=== PATIENT | male | born 1965 | race Caucasian/White ===

== ENCOUNTER 2019-02-20 15:11 | Emergency (ER) | payer MEDICAID ==
[~2019-02-20] VITALS: Ht 172.7 cm; Wt 65.8 kg
--- NOTE | 2019-02-20 15:20 | NUR ---
patient presented to the ER, TIFFANIE, from the street. passed out, noted with 1 gallon of vodka on scene. On room air, breathing evenly adn unlabored. Kept comfortable, will continue to monitor accordingly.
--- NOTE | 2019-02-20 15:22 | NUR ---
ORDERED LUNCH TRAY
[2019-02-20] MEDS ORDERED: MAG HYDROX/AL HYDROX/SIMETH 30 ML UDC ONE (15:27)
[2019-02-20] MEDS ORDERED: MAG HYDROX/AL HYDROX/SIMETH 30 ML UDC PO ONE (15:30)
[2019-02-20 15:42] LABS: BASOPHILS # (AUTO) 0.1 /CMM (0.0-0.2); BASOPHILS % (AUTO) 1.4 % (0.0-2.0); EOSINOPHILS % (AUTO) 1.2 % (0.0-6.0); HEMATOCRIT 41 % (39-51); HEMOGLOBIN 14.1 g/dL (13.5-17.5); LYMPHOCYTES % (AUTO) 25.9 % (20.0-44.0); MEAN CORPUSCULAR HGB CONC 34 g/dl (31.0-36.0); MEAN CORPUSCULAR VOLUME 98 fL (80-96); MONOCYTES # (AUTO) 0.6 /CMM (0.1-1.30); MONOCYTES % (AUTO) 14.3 % (2.0-12.0); NEUTROPHILS # (AUTO) 2.3 /CMM (1.8-8.9); NEUTROPHILS % (AUTO) 57.2 % (43.0-81.0); PLATELET COUNT (AUTO) 107 /CMM (150-450); RED BLOOD CELL COUNT(AUTO) 4.16 MIL/uL (4.5-6.0)
[2019-02-20 15:50] LABS: CALCIUM, SERUM 8.9 mg/dL (8.5-10.1); CREATININE 0.9 mg/dL (0.6-1.3); POTASSIUM 3.6 mmol/L (3.5-5.1)
[2019-02-20 16:04] LABS: ALBUMIN 3.9 g/dL (3.4-5.0); BILIRUBIN,DIRECT 0.4 mg/dL (0.0-0.2); TOTAL PROTEIN, SERUM 7.2 g/dL (6.4-8.2)
[2019-02-20 17:30] VITALS: BP 133/82
--- NOTE | 2019-02-20 17:31 | NUR ---
Patient discharged to home in stable condition. Written and verbal after care instructions given. Patient verbalizes understanding of instruction.IV removed. Catheter intact and site benign. Pressure and 4x4 applied to site. No bleeding noted.
== END 2019-02-20 17:30 | disposition home or self-care (01) ==
LOC: ER 15:19
DX: F10.129 Alcohol abuse with intoxication, unspecified (principal); K29.20 Alcoholic gastritis without bleeding; Y90.9 Presence of alcohol in blood, level not specified
CPT/HCPCS: 36415; 80048-TC; 80076-TC; 83690-TC; 85025-TC

== ENCOUNTER 2019-05-08 22:49 | Inpatient (IN) | payer MEDICAID ==
[~2019-05-08] VITALS: Ht 180.3 cm; Wt 70.3 kg
--- NOTE | 2019-05-08 23:00 | NUR ---
PT BIB RA FROM THE STREET WITH A C/O ETOH. PT WAS MOANING AND HOLDING HIS ABD. PT STATED THAT HE HAD ABD PAIN AND A HX OF PANCREATITIS. PT STATED THAT HE "DRANK A LOT" TODAY. PT WAS FOUND LYING ON THE GROUND OUTSIDE A RESTAURANT AND 911 WAS CALLED. PT STATED THAT HE IS NOT HOMELESS AND HAS AN APARTMENT THAT HE OWNS AND LIVES IN. PT WAS PLACED ON THE MONITOR AND CONTINUOUS PULSE OX. VSS.
--- NOTE | 2019-05-08 23:15 | NUR ---
DR OLMEDO IS AT THE BEDSIDE SPEAKING TO THE PT. PT DENIES ABD PAIN AT THIS TIME, BUT STATES THAT HE HAS HX OF PANCREATITIS. PT IS INTERMITTENTLY FALLING ASLEEP. PT REC'D WARM BLANKETS.
[2019-05-08 23:29] LABS: BASOPHILS # (AUTO) 0.1 /CMM (0.0-0.2); BASOPHILS % (AUTO) 0.7 % (0.0-2.0); EOSINOPHILS % (AUTO) 0.1 % (0.0-6.0); HEMATOCRIT 49 % (39-51); HEMOGLOBIN 16.4 g/dL (13.5-17.5); LYMPHOCYTES # (AUTO) 1.8 /CMM (0.8-4.8); LYMPHOCYTES % (AUTO) 15.3 % (20.0-44.0); MEAN CORPUSCULAR HGB CONC 34 g/dl (31.0-36.0); MEAN CORPUSCULAR VOLUME 96 fL (80-96); MONOCYTES # (AUTO) 0.6 /CMM (0.1-1.30); NEUTROPHILS # (AUTO) 9.1 /CMM (1.8-8.9); NEUTROPHILS % (AUTO) 78.9 % (43.0-81.0); PLATELET COUNT (AUTO) 245 /CMM (150-450); RED BLOOD CELL COUNT(AUTO) 5.07 MIL/uL (4.5-6.0); WHITE BLOOD COUNT (AUTO) 11.5 K/uL (4.3-11.0)
[2019-05-08] MEDS ORDERED: IV NS 0.9% 1,000 ML BAG IV ONE (23:30)
[2019-05-08 23:36] LABS: CALCIUM, SERUM 8.6 mg/dL (8.5-10.1); POTASSIUM 3.7 mmol/L (3.5-5.1)
[2019-05-08 23:41] LABS: BILIRUBIN,DIRECT 0.3 mg/dL (0.0-0.2); BILIRUBIN,TOTAL 1.2 mg/dL (0.2-1.0); TOTAL PROTEIN, SERUM 7.9 g/dL (6.4-8.2)
--- NOTE | 2019-05-09 | NUR ---
PT'S FLUID IS NOT RUNNING. PT'S ARM IS BENT. ASKED PT TO KEEP HIS ARM STRAIGHT AND PT STATED HE WOULD.
[2019-05-09] MEDS ORDERED: IV NS 0.9% 1,000 ML BAG IV ONE ×2 (00:30→07:00)
--- NOTE | 2019-05-09 00:50 | NUR ---
PLACED BLANKETS UNDER PT'S ARM AND ALLOW THE IVF TO RUN BETTER.
--- NOTE | 2019-05-09 02:05 | NUR ---
PT IS SLEEPING SOUNDLY. PT IS ON THE MONITOR AND CONTINUOUS PULSE OX. PT HAS REQUESTED TO STAY UNTIL TOMORROW. PT IS STILL DENYING HOMELESSNESS.
--- NOTE | 2019-05-09 02:57 | NUR ---
REPORT GIVEN TO ANATOLY MIN AND MECHELLE HUSTON FOR GRACIELA.
[2019-05-09 03:23] LABS: CALCIUM, SERUM 7.2 mg/dL (8.5-10.1); CREATININE 0.9 mg/dL (0.6-1.3); POTASSIUM 4.2 mmol/L (3.5-5.1)
[2019-05-09] MEDS ORDERED: LORAZEPAM INJ 2 MG/ML VIAL ONE ×3 (03:35→07:20)
[2019-05-09] MEDS ORDERED: LORAZEPAM INJ 2 MG/ML VIAL IV ONE ×3 (04:00→07:00)
[2019-05-09] MEDS ORDERED: FOLIC ACID 1 MG TABLET PO ONE (07:00)
[2019-05-09] MEDS ORDERED: Thiamine 100 MG in IV D5W 50 ML IV SCH (07:00)
--- NOTE | 2019-05-09 07:15 | NUR ---
ASSUME PT CARE. RESTING IN BED. SLEEPING, AROUSABLE. TOGOLESE SPEAKING. ON MONITOR. TACHYCARDIC. WILL CONT. TO MONITOR.
[2019-05-09] MEDS ORDERED: FOLIC ACID 1 MG TABLET ONE (07:19)
[2019-05-09] MEDS ORDERED: Thiamine 100 MG/ML VIAL ONE (07:19)
[2019-05-09] MEDS ORDERED: Folic acid 1 MG/0.2 ML VIAL ONE (07:22)
[2019-05-09] MEDS ORDERED: Folic acid 1 MG/0.2 ML VIAL IV ONE (07:30)
--- NOTE | 2019-05-09 08:03 | NUR ---
Rm 101
--- NOTE | 2019-05-09 08:42 | NUR ---
REPORT GIVEN TO KELIN MIN. PT AWAITING TRANSFER TO FLOOR.
--- NOTE | 2019-05-09 08:50 | NUR ---
TELE1/AUDIO VIDEO TECHNICIAN TO TELE1 - ROOM 101 PT ARRIVED VIA GURNEY ACCOMPANIED BY ER NURSE AND INTERNAL MEDICINE SPECIALIST, PT VERY ALERT, BUT VERY DROWSY, UNABLE TO SUSTAIN BEING AWAKE FULLY TO ANSWER QUESTIONS BUT FOLLOWS COMMAND. PT ADMITTED FOR TOXIC ENCEPHALOPATHY RELATED TO ALCOHOL INTOXICATION, UNDER THE CARE OF Ele JASSO. TELE BOX PLACED, NOTED WITH ELEVATED HEART RATE, 123, SINUS TACHY. IV SITE FLUSHED, PATENT WITH NO S/S OF INFECTION. SKIN INTACT. ADMISSION PROTOCOLS BEING PROCESSED. AWAITING FOR ADMISSION ORDERS. CL WITHIN REACHED AND SAFETY MAINTAINED. ON GOING MONITORING.
[2019-05-09 09:00] VITALS: BP 112/72
[2019-05-09] MEDS ORDERED: ZOLPIDEM TARTRATE 5 MG TABLET PO PRN (10:00)
[2019-05-09] MEDS ORDERED: Z GUARD REMEDY 2 OZ OINT TP PRN (10:00)
[2019-05-09] MEDS ORDERED: ACETAMINOPHEN 325 MG TABLET PO PRN (10:00)
[2019-05-09] MEDS ORDERED: MAGNESIUM HYDROXIDE 30 ML UDC PO PRN (10:00)
[2019-05-09] MEDS ORDERED: MAG HYDROX/AL HYDROX/SIMETH 30 ML UDC PO PRN (10:00)
[2019-05-09 10:34] LABS: BILIRUBIN,TOTAL 1.3 mg/dL (0.2-1.0); CALCIUM, SERUM 7.1 mg/dL (8.5-10.1); CREATININE 0.8 mg/dL (0.6-1.3); MAGNESIUM 1.3 mg/dL (1.8-2.4); PHOSPHORUS 2.9 mg/dL (2.5-4.9); POTASSIUM 3.7 mmol/L (3.5-5.1); TOTAL PROTEIN, SERUM 6.3 g/dL (6.4-8.2)
[2019-05-09] MEDS: Folic acid 1 MG in IV D5W 50 ML IV SCH (10:48)
[2019-05-09] MEDS: IV 1/2NS 1000 ML 1,000 ML IV PRN (10:48)
[2019-05-09] MEDS ORDERED: IV NS 0.9% 250 ML IV PRN (11:00)
[2019-05-09 11:26] LABS: BASOPHILS # (AUTO) 0.1 /CMM (0.0-0.2); BASOPHILS % (AUTO) 1.2 % (0.0-2.0); EOSINOPHILS % (AUTO) 0.7 % (0.0-6.0); HEMATOCRIT 43 % (39-51); HEMOGLOBIN 14.2 g/dL (13.5-17.5); LYMPHOCYTES # (AUTO) 2.1 /CMM (0.8-4.8); LYMPHOCYTES % (AUTO) 18.4 % (20.0-44.0); MEAN CORPUSCULAR HGB CONC 33 g/dl (31.0-36.0); MEAN CORPUSCULAR VOLUME 95 fL (80-96); MONOCYTES # (AUTO) 0.8 /CMM (0.1-1.30); NEUTROPHILS # (AUTO) 8.1 /CMM (1.8-8.9); NEUTROPHILS % (AUTO) 72.7 % (43.0-81.0); PLATELET COUNT (AUTO) 184 /CMM (150-450); RED BLOOD CELL COUNT(AUTO) 4.49 MIL/uL (4.5-6.0); WHITE BLOOD COUNT (AUTO) 11.2 K/uL (4.3-11.0)
[2019-05-09 16:00] VITALS: BP 120/78
[2019-05-09] MEDS: ONDANSETRON HCL/PF 4 MG/2 ML VIAL IVP PRN ×2 (18:11→22:23)
--- NOTE | 2019-05-09 19:00 | NUR ---
MS1/RN AM SHIFT END NOTES PT SLEPT AND DROWSY THROUGHOUT THE SHIFT. NO ACUTE CHANGE OF CONDITION NOTED DURING THE SHIFT. NO SIGNS OF ALCOHOL WITHDRAWAL NOTED. PT ENDORSED TO PM NURSE TO CONTINUE CARE. CL WITHIN REACHED AND SAFETY MAINTAINED.
[2019-05-09 20:00] VITALS: BP 123/84
--- NOTE | 2019-05-09 20:05 | NUR ---
RN OPENING NOTES RECEIVED REPORT FROM DEUCE MIN. PATIENT A/A/O X4, DROWSY BUT EASILY AROUSABLE. ABLE TO MAKE NEEDS KNOWN. BREATHING EVEN & UNLABORED, TOLERATING ROM AIR. DENIES ANY SOB OR DIFFICULTY BREATHING. RADIAL PULSES PRESENT. RIGHT FOREARM IV #18 INTACT & PATENT & IVF 1/2 MS INFUSING WELL @ 125 ML/HR. DENIES ANY PAIN OR DISCOMFORT @ THIS TIME. ABLE TO USE URINAL BUT INSTRUCTED TO CALL FOR ASSISTANCE. SAFETY MEASURES IN PLACE W/ SIDE RAILS UP & BED ALARM ON. CALL LIGHT PLACED WITHIN REACH. WILL CONTINUE TO MONITOR.
--- NOTE | 2019-05-09 23:30 | NUR ---
RN NOTES PATIENT NOTED TO BE GOING THROUGH WITHDRAWALS & SHAKING A LOT. CALLED DR HARRIS & RECEIVED ORDER FOR IV ATIVAN PRN. NEW ORDER NOTED & CARRIED OUT.
[2019-05-09] MEDS: LORAZEPAM INJ 2 MG/ML VIAL IV PRN (23:44)
[2019-05-10 04:00] VITALS: BP 106/64
[2019-05-10 06:27] LABS: BASOPHILS # (AUTO) 0.1 /CMM (0.0-0.2); BASOPHILS % (AUTO) 0.6 % (0.0-2.0); EOSINOPHILS % (AUTO) 0.5 % (0.0-6.0); HEMATOCRIT 37 % (39-51); HEMOGLOBIN 12.7 g/dL (13.5-17.5); LYMPHOCYTES # (AUTO) 1.3 /CMM (0.8-4.8); LYMPHOCYTES % (AUTO) 12.9 % (20.0-44.0); MEAN CORPUSCULAR HGB CONC 34 g/dl (31.0-36.0); MEAN CORPUSCULAR VOLUME 95 fL (80-96); MONOCYTES # (AUTO) 0.6 /CMM (0.1-1.30); MONOCYTES % (AUTO) 5.7 % (2.0-12.0); NEUTROPHILS # (AUTO) 8.1 /CMM (1.8-8.9); NEUTROPHILS % (AUTO) 80.3 % (43.0-81.0); PLATELET COUNT (AUTO) 147 /CMM (150-450); RED BLOOD CELL COUNT(AUTO) 3.91 MIL/uL (4.5-6.0); WHITE BLOOD COUNT (AUTO) 10.1 K/uL (4.3-11.0)
[2019-05-10 06:34] LABS: CALCIUM, SERUM 8.2 mg/dL (8.5-10.1); CREATININE 0.7 mg/dL (0.6-1.3); PHOSPHORUS 2.8 mg/dL (2.5-4.9); POTASSIUM 3.7 mmol/L (3.5-5.1)
[2019-05-10 07:03] LABS: MAGNESIUM 1.1 mg/dL (1.8-2.4)
[2019-05-10] MEDS: ONDANSETRON HCL/PF 4 MG/2 ML VIAL IVP PRN (07:38)
[2019-05-10] MEDS: IV 1/2NS 1000 ML 1,000 ML IV PRN (07:38)
[2019-05-10 08:00] VITALS: BP 126/93
[2019-05-10] MEDS ORDERED: Thiamine 100 MG in IV D5W 50 ML IV SCH (08:00)
--- NOTE | 2019-05-10 08:00 | NUR ---
MS1/RN AM SHIFT INITIAL NOTES RECEIVED PT AWAKE IN BED, PT A/O X 3, MORE ALERT NOW CONVERSANT, PLEASANT. ON ROOM AIR SATURATING @ 98%, RESPIRATIONS EVEN & UNLABORED. NOTED WITH HANDS TREMBLING, COMPLAINT OF NAUSEA. WITH ON GOING IV INFUSION OF NS @ 125CC/HR, IV SITE PATENT WITH NO S/S OF INFECTION. SCHEDULED AM MEDS TO BE GIVEN, CL WITHIN REACHED AND SAFETY MAINTAINED. ON GOING MONITORING.
[2019-05-10] MEDS: THIAMINE HCL 100 MG TABLET PO SCH (08:10)
[2019-05-10] MEDS: MULTIVITAMINS,THERAGRAN 1 UDTAB TABLET PO SCH (08:10)
[2019-05-10] MEDS: FOLIC ACID 1 MG TABLET PO SCH (08:11)
[2019-05-10] MEDS: Folic acid 1 MG in IV D5W 50 ML IV SCH (09:14)
--- NOTE | 2019-05-10 10:32 | NUR ---
Social service consult requested by EITAN Cabello for ETOH and possible homeless. Pt. is a 53 year old male who was admitted to [facility] for ETOH. Pt. came in intoxicated from a restaurant. JASMINE met with pt. bedside. Pt. is alert and oriented x 3. Pt. is having some tremors as he is withdrawing from alcohol. Pt. states he lives with a friend in [place] and has been living there for the past year. Pt. admits to having alcohol problem and stated, " I need to stop, I can't continue this." Pt. appears to be motivated to make a change. Pt. has a history of previous alcohol treatment programs. Pt. last attended [facility] inpatient rehab approximately two years ago. JASMINE offered pt. referrals to alcohol rehab. programs, however pt. declined stating, he knows everyone at [facility] and will go back there. Pt. states when he has money he drinks a pint of vodka daily. Pt. denies any drug use. Pt. denies any psychiatric diagnosis as well. Pt. receives General relief and food stamps monthly. Pt. will require a T-shirt and TAP when ready to be discharged. JASMINE updated pt's MECHELLE Almanza and BROOK Tobar with aforementioned information. SW is available, if needed.
--- NOTE | 2019-05-10 11:14 | NUR ---
MS1/RN TREMORS NOTIFIED DR. WORLEY THAT PT'S TREMORS ARE MORE PRONOUNCED, WITH T.O RECEIVED FOR LIBRIUM 50MG P.O T.I.D. ORDER NOTED AND CARRIED.
[2019-05-10] MEDS: LORAZEPAM INJ 2 MG/ML VIAL IV PRN (11:34)
[2019-05-10] MEDS: Magnesium 1GM/D5W 100ML PREMIX 100 ML IV SCH ×4 (11:46→17:11)
[2019-05-10] MEDS: CHLORDIAZEPOXIDE HCL 25 MG CAPSULE PO SCH ×2 (12:56→17:12)
[2019-05-10] MEDS ORDERED: CHLORDIAZEPOXIDE HCL 5 MG CAPSULE PO SCH (13:00)
[2019-05-10 16:00] VITALS: BP 124/81
--- NOTE | 2019-05-10 17:00 | NUR ---
MS1/RN AFTERNOON ROUNDS NO ACUTE CHANGE OF CONDITION, STILL NOTICING TREMORS BUT NOT PRONOUNCED. PT HAS NOT BEEN EATING, SAID HE HAS NO APPETITE BUT HAS BEEN DRINKING LIQUIDS. ON GOING MONITORING.
--- NOTE | 2019-05-10 19:24 | NUR ---
MS1/RN AM SHIFT END NOTES ALL NEEDS MET. NO SIGNIFICANT CHANGE OF CONDITION NOTED DURING THE SHIFT. PT ENDORSED TO PM NURSE TO CONTINUE CARE. CL WITHIN REACHED AND SAFETY MAINTAINED.
[2019-05-10 20:00] VITALS: BP 139/64
--- NOTE | 2019-05-10 20:15 | NUR ---
RN OPENING NOTES RECEIVED REPORT FROM DEUCE MIN. PATIENT A/A/O X4, ABLE TO MAKE NEEDS KNOWN. BREATHING EVEN & UNLABORED, TOLERATING ROOM AIR. DENIES ANY SOB OR DIFFICULTY BREATHING. RADIAL PULSES PRESENT. LEFT FOREARM IV #18 INTACT & PATENT & IVF 1/2 NS INFUSING WELL @ 125 ML/HR. DENIES ANY PAIN OR DISCOMFORT @ THIS TIME. ABLE TO USE URINAL BUT INSTRUCTED TO CALL FOR ASSISTANCE. SAFETY MEASURES IN PLACE W/ SIDE RAILS UP & BED ALARM ON. CALL LIGHT PLACED WITHIN REACH. WILL CONTINUE TO MONITOR.
[2019-05-11] MEDS: IV 1/2NS 1000 ML 1,000 ML IV PRN (03:56)
[2019-05-11 04:00] VITALS: BP 136/81
[2019-05-11] MEDS: THIAMINE HCL 100 MG TABLET PO SCH (07:47)
[2019-05-11] MEDS: ONDANSETRON HCL/PF 4 MG/2 ML VIAL IVP PRN (07:47)
[2019-05-11] MEDS: MULTIVITAMINS,THERAGRAN 1 UDTAB TABLET PO SCH (07:47)
[2019-05-11] MEDS: CHLORDIAZEPOXIDE HCL 25 MG CAPSULE PO SCH ×2 (07:47→13:16)
[2019-05-11] MEDS: FOLIC ACID 1 MG TABLET PO SCH (07:47)
[2019-05-11 08:00] VITALS: BP 135/95
--- NOTE | 2019-05-11 15:15 | NUR ---
RN D/C NOTE RECEIVED D/C ORDER. PATIENT IS STABLE. NO TREMORS NOTED. A/OX4. EDUCATED ON ALCOHOL ABUSE. PRESCRIPTIONS PROVIDED TO PATIENT. NO WOUNDS NOTED. BUS PASS PROVIDED. PATIENT STATES HE LIVES IN [place] WITH HIS FRIEND. IV REMOVED, CATHETER INTACT, NO BLEEDING NOTED. BELONGINGS CHECKLIST SIGNED. PATIENT AMBULATED OUT OF UNIT @6644.
== END 2019-05-11 15:30 | disposition home or self-care (01) | DRG 775 ==
LOC: ER 22:58 → TELE1 05-09 08:34 → MEDSG1 05-09 11:32
PROVIDERS: ADMIT Internal Medicine; ATTEND Internal Medicine
DX: F10.239 Alcohol dependence with withdrawal, unspecified (principal); F10.229 Alcohol dependence with intoxication, unspecified; G31.2 Degeneration of nervous system due to alcohol; K83.1 Obstruction of bile duct; E83.42 Hypomagnesemia; D72.828 Other elevated white blood cell count; Y90.9 Presence of alcohol in blood, level not specified; R74.0 Nonspecific elevation of levels of transaminase and lactic acid dehydrogenase [LDH]
CPT/HCPCS: 36415; 80048-TC; 80053-TC; 80061-TC; 80076-TC; 83690-TC; 83735-TC; 84100-TC; 84484-TC; 85025-TC; G0378; J2060; J2405; J3411; J3475; J3490; J7030; J7050; J7060

== ENCOUNTER 2019-05-13 17:50 | Emergency (ER) | payer MEDICAID ==
[~2019-05-13] VITALS: Ht 172.7 cm; Wt 68.5 kg
--- NOTE | 2019-05-13 18:17 | NUR ---
[facility], ETOH ADMITS TO 2 BOTTLES OF VODKA. PT STATES TOOK 6-8 PILLS OF ZOLOFT, PER EMS ETOH PER SON. DENIES SI/HI. ADMITS AUDITORY HALLUCINATIONS. PT RAMBLING, AOX2, VSS, RR EVEN AND UNLABORED ON RA. DENIES SOB, DIZZINESS, WEAKNESS. HAS SOME NAUSEA, DENIES VOMITING. NO ACUTE DISTRESS NOTED. READY FOR AIRPLANE FLIGHT ATTENDANT SUPERVISOR EVAL.
[2019-05-13 18:25] LABS: BASOPHILS % (AUTO) 0.6 % (0.0-2.0); EOSINOPHILS % (AUTO) 2.2 % (0.0-6.0); HEMATOCRIT 36 % (39-51); HEMOGLOBIN 12.2 g/dL (13.5-17.5); LYMPHOCYTES # (AUTO) 1.9 /CMM (0.8-4.8); LYMPHOCYTES % (AUTO) 36.6 % (20.0-44.0); MEAN CORPUSCULAR HGB CONC 34 g/dl (31.0-36.0); MEAN CORPUSCULAR VOLUME 95 fL (80-96); MONOCYTES # (AUTO) 0.5 /CMM (0.1-1.30); MONOCYTES % (AUTO) 9.6 % (2.0-12.0); NEUTROPHILS # (AUTO) 2.7 /CMM (1.8-8.9); PLATELET COUNT (AUTO) 156 /CMM (150-450); RED BLOOD CELL COUNT(AUTO) 3.77 MIL/uL (4.5-6.0); WHITE BLOOD COUNT (AUTO) 5.3 K/uL (4.3-11.0)
[2019-05-13 18:32] LABS: CALCIUM, SERUM 8.2 mg/dL (8.5-10.1); CARBON DIOXIDE 27 mmol/L (21-32); CHLORIDE 108 mmol/L (98-107); CREATININE 0.8 mg/dL (0.6-1.3); GLUCOSE 112 mg/dL (74-106); POTASSIUM 3.3 mmol/L (3.5-5.1); SODIUM SERUM 147 mmol/L (136-145); UREA NITROGEN, BLOOD 7 mg/dL (7-18)
[2019-05-13 18:50] LABS: ALANINE AMINOTRANSFERASE 57 U/L (12-78); ALBUMIN 3.4 g/dL (3.4-5.0); ALCOHOL, BLOOD 421 mg/dL (0-0); ALKALINE PHOSPHATASE 42 U/L (46-116); ASPARTATE AMINOTRANSFERASE 68 U/L (15-37); BILIRUBIN,DIRECT 0.2 mg/dL (0.0-0.2); BILIRUBIN,TOTAL 0.6 mg/dL (0.2-1.0)
[2019-05-13 18:53] LABS: SALICYLATE 1.1 mg/dL (2.8-20.0)
[2019-05-13 18:54] LABS: ACETAMINOPHEN < 2 ug/ml (10-30)
[2019-05-13] MEDS ORDERED: ONDANSETRON HCL/PF 4 MG/2 ML VIAL ONE (19:00)
[2019-05-13] MEDS ORDERED: ONDANSETRON HCL/PF 4 MG/2 ML VIAL IV ONE (19:00)
[2019-05-13] MEDS ORDERED: IV NS 0.9% 1,000 ML BAG IV ONE (19:00)
--- NOTE | 2019-05-13 20:04 | NUR ---
PT REQUESTING FOR FOOD. ABLE TO TOLERATE PO FLUIDS. PUBLIC TRANSIT SPECIALIST NOTIFIED
--- NOTE | 2019-05-13 21:23 | NUR ---
PT MAKING ATTEMPTS TO LEAVE. ALCOHOL LEVEL WAS HIGH, SO ENCOURAGED PT TO STAY UNTIL HE IS STABLE. REQUESTED TO SPEAK WITH ESE TEACHER.
[2019-05-13] MEDS ORDERED: POTASSIUM CHLORIDE 20 MEQ TAB.PRT.SR PO ONE ×2 (21:27→21:30)
--- NOTE | 2019-05-13 21:34 | NUR ---
PT REMOVED IV. NO BLEEDING NOTED. WELCOME CENTER ATTENDANT AWARE
--- NOTE | 2019-05-13 21:42 | NUR ---
PER GANG SUPERVISOR PIPE LINES, PT SHOULD HAVE PSYCH EVAL AROUND MIDNIGHT. WILL CONTACT SCREW EYE ASSEMBLER AT 11
--- NOTE | 2019-05-13 21:55 | NUR ---
PER HAND MOLDER AND CASTER, OPTICAL COATING TECHNICIAN CAN BE CONTACTED NOW
--- NOTE | 2019-05-13 22:58 | NUR ---
URINE COLLECTED AND SENT TO STAT LAB
--- NOTE | 2019-05-13 23:25 | NUR ---
PT RESTING COMFORTABLY IN BED. VITAL SIGNS STABLE. SITTER AT BEDSIDE, WILL CONTINUE TO MONITOR
--- NOTE | 2019-05-13 23:40 | NUR ---
PROVIDED PT WITH SANDWICH AND JUICE PER PT REQUEST
--- NOTE | 2019-05-13 23:58 | NUR ---
SPOKE WITH CARLA FROM POISON CONTROL AND UPDATED HIM ON PATIENT CONDITION. PER CARAL, STATES TO CONTINUE MONITORING PT, NOTHING NEW TO ADD TO PLAN OF CARE.
[2019-05-14] MEDS ORDERED: DIAZEPAM 5 MG/ML 2 ML DISP.SYRIN IV STA (02:40)
[2019-05-14] MEDS ORDERED: DIAZEPAM 5 MG/ML 2 ML DISP.SYRIN ONE (03:15)
--- NOTE | 2019-05-14 03:28 | NUR ---
ORDER RECEIVED TO GIVE VALIUM 5MG VIA IV. NOTED THAT PT HAVE PULLED OUT HIS IV ACCESS EARLIER. NOTIFIED MD THAT PT HAS NO IV LINE AND OREDERED TO GIVE MEDICATION VIA IM. ORDER NOTED AND CARRIED OUT
--- NOTE | 2019-05-14 04:41 | NUR ---
PT RESTING COMFORTABLY IN BED. VITAL SIGNS STABLE. SITTER AT BEDSIDE, WILL CONTINUE TO MONITOR
[2019-05-14] MEDS ORDERED: LORAZEPAM INJ 2 MG/ML VIAL IV STA (05:15)
[2019-05-14] MEDS ORDERED: LORAZEPAM INJ 2 MG/ML VIAL ONE (05:19)
[2019-05-14] MEDS ORDERED: CHLORDIAZEPOXIDE HCL 25 MG CAPSULE PO STA (05:58)
[2019-05-14] MEDS ORDERED: CHLORDIAZEPOXIDE HCL 25 MG CAPSULE ONE (06:06)
[2019-05-14 06:08] VITALS: BP 140/81
--- NOTE | 2019-05-14 06:23 | NUR ---
Patient discharged to home in stable condition. Written and verbal after care instructions given. Patient verbalizes understanding of instruction.IV removed. Catheter intact and site benign. Pressure and 4x4 applied to site. No bleeding noted.Pt ambulatory with a steady gait. Pt denies SI and HI. given TAP Card.
--- NOTE | 2019-05-14 06:25 | NUR ---
pt denies being homeless
== END 2019-05-14 06:26 | disposition home or self-care (01) ==
LOC: ER 17:53
DX: F10.129 Alcohol abuse with intoxication, unspecified (principal); E87.6 Hypokalemia; F17.200 Nicotine dependence, unspecified, uncomplicated; Y90.8 Blood alcohol level of 240 mg/100 ml or more; Z60.2 Problems related to living alone
CPT/HCPCS: 36415 ×2; 80048; 80076; 80307 ×2; 80329; 85025; 93005; 96374; 96375; 99284; J2060; J2405; J3360; J7030; 80305; G0480

== ENCOUNTER 2019-05-15 17:15 | Emergency (ER) | payer MEDICAID ==
[~2019-05-15] VITALS: Ht 172.7 cm; Wt 68.5 kg
--- NOTE | 2019-05-15 17:21 | NUR ---
PT BIB RA FROM THE STREETS WITH A C/O ALCOHOL INTOXICATION. PT IS AWAKE AND ALERT. PT IS ANSWERING QUESTIONS. PT WAS TRIAGED AND TAKEN TO ER 15. PT WAS PLACED ON THE MONITOR AND CONTINUOUS PULSE OX.
--- NOTE | 2019-05-15 17:50 | NUR ---
PT REC'D A SANDWICH AND JUICE. PT TOLERATED PO WELL.
[2019-05-15 18:09] LABS: BASOPHILS % (AUTO) 0.8 % (0.0-2.0); EOSINOPHILS % (AUTO) 2.2 % (0.0-6.0); HEMATOCRIT 36 % (39-51); HEMOGLOBIN 12.1 g/dL (13.5-17.5); LYMPHOCYTES # (AUTO) 1.9 /CMM (0.8-4.8); MEAN CORPUSCULAR HGB CONC 34 g/dl (31.0-36.0); MEAN CORPUSCULAR VOLUME 97 fL (80-96); MONOCYTES # (AUTO) 0.5 /CMM (0.1-1.30); MONOCYTES % (AUTO) 10.3 % (2.0-12.0); NEUTROPHILS # (AUTO) 2.6 /CMM (1.8-8.9); NEUTROPHILS % (AUTO) 49.7 % (43.0-81.0); PLATELET COUNT (AUTO) 151 /CMM (150-450); RED BLOOD CELL COUNT(AUTO) 3.71 MIL/uL (4.5-6.0); WHITE BLOOD COUNT (AUTO) 5.2 K/uL (4.3-11.0)
[2019-05-15 18:17] LABS: CALCIUM, SERUM 8.6 mg/dL (8.5-10.1); CREATININE 0.9 mg/dL (0.6-1.3); POTASSIUM 3.5 mmol/L (3.5-5.1)
[2019-05-15 18:23] LABS: ALBUMIN 3.4 g/dL (3.4-5.0); BILIRUBIN,TOTAL 0.5 mg/dL (0.2-1.0); MAGNESIUM 1.7 mg/dL (1.8-2.4); TOTAL PROTEIN, SERUM 6.8 g/dL (6.4-8.2)
--- NOTE | 2019-05-15 18:50 | NUR ---
PT WAS PLACED ON 2L O2 VIA NC. PT WAS DESATURATING WHILE HE WAS SLEEPING. IS AWARE.
[2019-05-15] MEDS: IV D5W 1,000 ML IV ONE (19:13)
[2019-05-15] MEDS: Magnesium 1 GM/2 ML VIAL IV ONE (19:13)
[2019-05-15] MEDS ORDERED: Magnesium 1GM/D5W 100ML PREMIX 100 ML IV ONE (19:14)
--- NOTE | 2019-05-15 19:44 | NUR ---
PT APPEARS TO BE SLEEPING SOUNDLY. PT IS ON THE MONITOR AND CONTINUOUS PULSE OX. PT IS ALSO ON 2L O2 VIA NC. O2 SAT IS AT 98%.
[2019-05-15] MEDS: IV NS 0.9% 1,000 ML BAG IV ONE (19:46)
--- NOTE | 2019-05-15 19:46 | NUR ---
PER Erik ROBINS PA-C, VERBAL CANCELLATION OF D5W AND CHANGED ORDER TO 1L NS BOLUS.
[2019-05-15 20:18] LABS: APPEARANCE,URINE Clear (CLEAR); BILIRUBIN,URINE Negative (NEGATIVE); BLOOD, URINE Negative Ery/uL (NEGATIVE); COLOR,URINE Yellow (YELLOW); KETONES,URINE Negative (NEGATIVE); LEUKOCYTE ESTERASE ,URINE Negative (NEGATIVE); NITRITE, URINE Negative (NEGATIVE); PROTEIN,URINE Negative (NEGATIVE); UGLUCOSE Negative (NEGATIVE); UROBILINOGEN,URINE 0.2 EU/dL (0.2)
--- NOTE | 2019-05-15 22:30 | NUR ---
PT APPEARS TO BE SLEEPING SOUNDLY WITH NO S/S OF PAIN OR DISTRESS. PT IS ON THE MONITOR AND CONTINUOUS PULSE OX.
--- NOTE | 2019-05-16 | NUR ---
PT WAS C/O FEELING HUNGRY. PT REC'D AN EGG SANDWICH AND JUICE. PT IS TOLERATING PO WELL.
--- NOTE | 2019-05-16 01:18 | NUR ---
PT APPEARS TO BE RESTING COMFORTABLY WITH NO S/S OF PAIN OR DISTRESS.
--- NOTE | 2019-05-16 01:45 | NUR ---
PT AMBULATED TO THE NURSE'S STATION REQUESTING TO BE DISCHARGED. Erik ROBINS PA-C WAS NOTIFIED AND PT WAS OK'D FOR D/C HOME. PT HAD URINATED ALL OVER THE BED AND HIS PANTS. PT WAS TOLD TO GO BACK TO ER 15 AND I WOULD FIND HIM SOME APPROPRIATE CLOTHING. PT AMBULATED BACK TO ER 15 WITH A STEADY GAIT.
--- NOTE | 2019-05-16 01:50 | NUR ---
WAS ABLE TO GET A PAIR OF SHORTS AND A T SHIRT FOR THE PT. PT CHANGED AND ASKED FOR A TAP CARD TO GET HIM HOME.
--- NOTE | 2019-05-16 02:04 | NUR ---
IV removed. Catheter intact and site benign. Pressure and 4x4 applied to site. No bleeding noted. Patient discharged to home in stable condition. Written and verbal after care instructions given. Patient verbalizes understanding of instruction. PT AMBULATED TO THE NURSE'S STATION WITH A STEADY GAIT. NURSING COLLECTION DEVELOPMENT LIBRARIAN, Ele CHÁVEZ, WAS CALLED RE: A TAP CARD. PT WAS INSTRUCTED TO WAIT IN THE LOBBY AND A TAP CARD WOULD BE GIVEN TO HIM.
--- NOTE | 2019-05-16 02:07 | NUR ---
GAVE THE PT A TAP CARD. PT AMBULATED TO THE BUS STOP WITH A STEADY GAIT. VSS
[2019-05-16 02:11] VITALS: BP 120/85
== END 2019-05-16 02:09 | disposition home or self-care (01) ==
LOC: ER 17:17
DX: F10.129 Alcohol abuse with intoxication, unspecified (principal); D64.9 Anemia, unspecified; E87.0 Hyperosmolality and hypernatremia; F17.200 Nicotine dependence, unspecified, uncomplicated; Z60.2 Problems related to living alone; Z86.19 Personal history of other infectious and parasitic diseases; Y90.9 Presence of alcohol in blood, level not specified
CPT/HCPCS: 36415; 80053; 81001; 82550; 83735; 85025; 96365; 99283; J3475; J7030; 81000-TC

== ENCOUNTER 2019-05-17 02:18 | Emergency (ER) | payer MEDICAID ==
[~2019-05-17] VITALS: Ht 172.7 cm; Wt 68.5 kg
--- NOTE | 2019-05-17 02:27 | NUR ---
BIBRA FROM STREET +ETOH. AAOX4. RESPIRATIONS EVEN AND UNLABORED. SKIN INTACT. NO ACUTE DISTRESS NOTED AT THIS TIME. PT RECENTLY SEEN AND DISCHARGED FROM [facility] ER FOR SIMILIAR COMPLAINT X1 DAY AGO.
--- NOTE | 2019-05-17 02:29 | NUR ---
PROVIDED PT WITH CRACKERS AND JUICE
--- NOTE | 2019-05-17 03:07 | NUR ---
PT ABLE TO AMBULATE WITH STEADY GAIT TO RESTROOM
--- NOTE | 2019-05-17 05:05 | NUR ---
PT AAOX4. RESPIRATIONS EVEN AND UNLABORED. ABLE TO AMBULATE WITH STEADY GAIT. Patient discharged to home in stable condition. Written and verbal after care instructions given. Patient verbalizes understanding of instruction.
[2019-05-17 05:31] VITALS: BP 138/75
== END 2019-05-17 05:32 | disposition home or self-care (01) ==
LOC: ER 02:20
DX: F10.129 Alcohol abuse with intoxication, unspecified (principal); F17.200 Nicotine dependence, unspecified, uncomplicated; Y90.9 Presence of alcohol in blood, level not specified; Z59.0 Homelessness; Z60.2 Problems related to living alone

== ENCOUNTER 2019-07-22 23:27 | Emergency (ER) | payer MEDICAID ==
[~2019-07-22] VITALS: Ht 172.7 cm; Wt 68.0 kg
--- NOTE | 2019-07-22 23:31 | NUR ---
"[id number] FROM HOME C/O GENERALIZED CHEST PAIN" PT ALERT AWAKE, PT ON MONITOR ,VSS ,PENDING MD HILL
[2019-07-23 00:02] LABS: BASOPHILS # (AUTO) 0.1 /CMM (0.0-0.2); BASOPHILS % (AUTO) 1.6 % (0.0-2.0); EOSINOPHILS % (AUTO) 1.2 % (0.0-6.0); HEMATOCRIT 42 % (39-51); HEMOGLOBIN 14.3 g/dL (13.5-17.5); LYMPHOCYTES # (AUTO) 1.1 /CMM (0.8-4.8); LYMPHOCYTES % (AUTO) 26.3 % (20.0-44.0); MEAN CORPUSCULAR HGB CONC 34 g/dl (31.0-36.0); MEAN CORPUSCULAR VOLUME 99 fL (80-96); MONOCYTES # (AUTO) 0.3 /CMM (0.1-1.30); MONOCYTES % (AUTO) 6.7 % (2.0-12.0); NEUTROPHILS # (AUTO) 2.7 /CMM (1.8-8.9); NEUTROPHILS % (AUTO) 64.2 % (43.0-81.0); PLATELET COUNT (AUTO) 103 /CMM (150-450); RED BLOOD CELL COUNT(AUTO) 4.24 MIL/uL (4.5-6.0); WHITE BLOOD COUNT (AUTO) 4.1 K/uL (4.3-11.0)
[2019-07-23 00:08] LABS: CALCIUM, SERUM 9.3 mg/dL (8.5-10.1); CARBON DIOXIDE 22 mmol/L (21-32); CHLORIDE 102 mmol/L (98-107); CREATININE 0.8 mg/dL (0.6-1.3); GLUCOSE 88 mg/dL (74-106); POTASSIUM 3.6 mmol/L (3.5-5.1); SODIUM SERUM 142 mmol/L (136-145); UREA NITROGEN, BLOOD 8 mg/dL (7-18)
[2019-07-23] MEDS ORDERED: IV NS 0.9% 1,000 ML BAG IV ONE (01:00)
[2019-07-23] MEDS ORDERED: LORAZEPAM 1 MG TABLET PO ONE (03:00)
[2019-07-23] MEDS ORDERED: LORAZEPAM 1 MG TABLET ONE (03:00)
--- NOTE | 2019-07-23 03:03 | NUR ---
Patient is resting comfortably in bed with eyes closed. Easily aroused. VSS
--- NOTE | 2019-07-23 05:24 | NUR ---
pt ok to discharge per dr Ontiveros. IV removed. Catheter intact and site benign. Pressure and 4x4 applied to site. No bleeding noted.Patient discharged to home in stable condition. Written and verbal after care instructions given. Patient verbalizes understanding of instruction.Patient is awake and alert to self, day, and place. Pt ambulatory with a steady gait. Refuses offer of fci placement. Patient given list of available shelters in surrounding area.
[2019-07-23 05:26] VITALS: BP 121/74
== END 2019-07-23 05:28 | disposition home or self-care (01) ==
LOC: ER 23:27
DX: F10.129 Alcohol abuse with intoxication, unspecified (principal); R07.89 Other chest pain; R42 Dizziness and giddiness; F32.9 Major depressive disorder, single episode, unspecified; F17.200 Nicotine dependence, unspecified, uncomplicated; Z60.2 Problems related to living alone; Y90.8 Blood alcohol level of 240 mg/100 ml or more
CPT/HCPCS: 36415 ×2; 71045; 80048; 80307; 84484 ×2; 85025; 93005 ×2; 96360; 99284; J7030; G0480

== ENCOUNTER 2019-08-21 20:28 | Inpatient (IN) | payer MEDICAID, OTHER ==
[~2019-08-21] VITALS: Ht 167.6 cm; Wt 72.6 kg
--- NOTE | 2019-08-21 20:42 | NUR ---
PT BIB [employer] FROM [facility] C/O ALCOHOL WITHDRAWAL PER PT. PT IS AAOX4, NOT IN RESPIRATORY DISTRESS, HOOKED TO TRANSPORTATION AGENT, KEPT RESTED AND COMFORTABLE, WILL CONTINUE TO MONITOR.
[2019-08-21] MEDS ORDERED: ONDANSETRON HCL/PF 4 MG/2 ML VIAL ONE (21:11)
[2019-08-21] MEDS ORDERED: LORAZEPAM INJ 2 MG/ML VIAL ONE (21:11)
--- NOTE | 2019-08-21 21:11 | NUR ---
SEEN AND EXAMINED BY .
[2019-08-21 21:25] LABS: BASOPHILS # (AUTO) 0.1 /CMM (0.0-0.2); BASOPHILS % (AUTO) 2.2 % (0.0-2.0); EOSINOPHILS % (AUTO) 1.1 % (0.0-6.0); HEMATOCRIT 37 % (39-51); HEMOGLOBIN 12.5 g/dL (13.5-17.5); LYMPHOCYTES # (AUTO) 0.9 /CMM (0.8-4.8); LYMPHOCYTES % (AUTO) 23.5 % (20.0-44.0); MEAN CORPUSCULAR HGB CONC 34 g/dl (31.0-36.0); MEAN CORPUSCULAR VOLUME 102 fL (80-96); MONOCYTES # (AUTO) 0.5 /CMM (0.1-1.30); MONOCYTES % (AUTO) 11.6 % (2.0-12.0); NEUTROPHILS # (AUTO) 2.5 /CMM (1.8-8.9); NEUTROPHILS % (AUTO) 61.6 % (43.0-81.0); PLATELET COUNT (AUTO) 103 /CMM (150-450)
--- NOTE | 2019-08-21 21:25 | NUR ---
IV LINE ESTABLISHED, BLOOD DRAWN AND SENT TO LAB.
[2019-08-21] MEDS ORDERED: IV NS 0.9% 1,000 ML BAG IV ONE (21:30)
[2019-08-21] MEDS ORDERED: LORAZEPAM INJ 2 MG/ML VIAL IV ONE (21:30)
[2019-08-21] MEDS: ONDANSETRON HCL/PF 4 MG/2 ML VIAL IVP ONE (21:30)
[2019-08-21] MEDS ORDERED: ONDANSETRON HCL/PF - ER 4 MG/2 ML VIAL IV ONE (21:30)
[2019-08-21 21:56] LABS: ALBUMIN 3.9 g/dL (3.4-5.0); BILIRUBIN,DIRECT 0.4 mg/dL (0.0-0.2); BILIRUBIN,TOTAL 1.3 mg/dL (0.2-1.0); CALCIUM, SERUM 9.1 mg/dL (8.5-10.1); CREATININE 0.7 mg/dL (0.6-1.3); POTASSIUM 3.7 mmol/L (3.5-5.1); TOTAL PROTEIN, SERUM 7.4 g/dL (6.4-8.2)
--- NOTE | 2019-08-21 22:40 | NUR ---
KIMBERLY COSTA, COLE CHAVARRIA HYDRO SPRAYER OPERATOR
--- NOTE | 2019-08-21 22:42 | NUR ---
CALLED NURSING SUP. FOR GILBERTO BED
--- NOTE | 2019-08-21 22:57 | NUR ---
MAGNESIUM 1.0
[2019-08-21] MEDS ORDERED: MAG HYDROX/AL HYDROX/SIMETH 30 ML UDC PO PRN (23:00)
[2019-08-21] MEDS ORDERED: Thiamine 100 MG in IV D5W 50 ML IV SCH (23:00)
[2019-08-21] MEDS ORDERED: HYDROCODONE/APAP 5/325MG 1 EACH TABLET PO PRN (23:00)
[2019-08-21] MEDS ORDERED: ACETAMINOPHEN 325 MG TABLET PO PRN (23:00)
[2019-08-21] MEDS ORDERED: Z GUARD REMEDY 2 OZ OINT TP PRN (23:00)
[2019-08-21] MEDS ORDERED: CHLORDIAZEPOXIDE HCL 25 MG CAPSULE PO ONE (23:00)
[2019-08-21] MEDS ORDERED: ONDANSETRON HCL/PF 4 MG/2 ML VIAL IVP PRN (23:00)
[2019-08-21] MEDS ORDERED: LORAZEPAM INJ 2 MG/ML VIAL IV PRN (23:00)
[2019-08-21 23:13] LABS: MONOCYTES % (MANUAL) 10 % (0-11.0); NEUTROPHILS % (MANUAL) 66 (42-76)
[2019-08-21 23:14] LABS: LYMPHOCYTES % (MANUAL) 24 % (16-48)
--- NOTE | 2019-08-21 23:21 | NUR ---
BED ASSIGNMENT 322-2
--- NOTE | 2019-08-21 23:30 | NUR ---
REPORT GIVEN TO HERMANN MIN FOR GRACIELA.
--- NOTE | 2019-08-21 23:45 | NUR ---
received from ER ALERT AND ORIENTATED X4 SPEECH CLEAR ANSWERS QUESTIONS. AWARE WHY HE HAS BEEN ADMITTED. GAVE ME HIS BROTHER'S NAME AND PHONE NUMBER AND ASKED ME TO CALL HIM IN THE am. wILL DO THIS FOR HIM. POLICE AT THE BEDSIDE D/T HE IS UNDERARREST. MR. AUSTIN IS BEING COOPERATIVE . BEING SEEN BY THE ADMITTANCE ATTENDANT AT THIS TIME.
[2019-08-22] MEDS: PANTOPRAZOLE 40 MG VIAL IV SCH ×2 (00:35→08:23)
[2019-08-22] MEDS: IV NS 0.9% 1,000 ML IV PRN ×2 (00:35→22:37)
[2019-08-22] MEDS ORDERED: Thiamine 100 MG/ML VIAL ONE (00:45)
[2019-08-22 01:30] VITALS: BP 155/117
[2019-08-22] MEDS: Magnesium 1GM/D5W 100ML PREMIX 100 ML IV SCH ×4 (01:55→05:16)
[2019-08-22 02:14] VITALS: BP 157/100
--- NOTE | 2019-08-22 03:22 | NUR ---
SPOKE PHANI'S NAME AWAKENED AND DRANK SOME APPLE JUICE. RESP EVEN AND UNLABORED. SHAKING NO LONGER PRESENT,
--- NOTE | 2019-08-22 06:18 | NUR ---
RN NOTES: AWAKE AND ALERT. SPEECH CLEAR. NO TREMORS, aTIVAN GIVEN @0032 EFFECT FOR RELIEF OF THE TREMORS. COOPERATIVE. SPOKE TO HIS BROTHER BRIE @ [phone] TRANSFERED TO PT ROOM SO PHANI COULD SPEAK TO HIM. POLICE AT THE BEDSIDE
[2019-08-22 06:23] LABS: BASOPHILS # (AUTO) 0.1 /CMM (0.0-0.2); BASOPHILS % (AUTO) 1.4 % (0.0-2.0); EOSINOPHILS % (AUTO) 2.3 % (0.0-6.0); HEMATOCRIT 35 % (39-51); HEMOGLOBIN 11.9 g/dL (13.5-17.5); LYMPHOCYTES # (AUTO) 1.1 /CMM (0.8-4.8); LYMPHOCYTES % (AUTO) 29.2 % (20.0-44.0); MEAN CORPUSCULAR HGB CONC 34 g/dl (31.0-36.0); MEAN CORPUSCULAR VOLUME 101 fL (80-96); MONOCYTES # (AUTO) 0.5 /CMM (0.1-1.30); MONOCYTES % (AUTO) 12.5 % (2.0-12.0); NEUTROPHILS % (AUTO) 54.6 % (43.0-81.0); PLATELET COUNT (AUTO) 95 /CMM (150-450); RED BLOOD CELL COUNT(AUTO) 3.46 MIL/uL (4.5-6.0); WHITE BLOOD COUNT (AUTO) 3.7 K/uL (4.3-11.0)
[2019-08-22 06:43] LABS: CALCIUM, SERUM 8.6 mg/dL (8.5-10.1); CREATININE 0.6 mg/dL (0.6-1.3); MAGNESIUM 2.3 mg/dL (1.8-2.4); POTASSIUM 2.9 mmol/L (3.5-5.1)
[2019-08-22 08:00] VITALS: BP 138/92
--- NOTE | 2019-08-22 08:00 | NUR ---
RN NOTES RECEIVED PATIENT IN THE BED A/O X3, NO ACUTE RESPIRATORY DISTRESS,PATIENT AN ALCOHOL WITHDRAWN, SHAKING, WEAKNESS, WAS COMPLAINING OF NAUSEA, AND NO APPETITE FOR BREAKFAST, ADMINISTERED SCHEDULED MEDICATION, INFUSING NS AT 100 ML/HR ON RIGHT FA INTACT, SEEN BY HOSPITALIST ELIAS LAIRD, ALSO ADMINISTERED LIBRIUM PO. POLICE NEXT TO THE BED DO TO UNDER ARREST. NEEDS ATTENDED AND ANTICIPATED, CALL LIGHT WITHIN TO REACH, SAFETY PRECAUTION MAINTAINED ALL THE TIME.
[2019-08-22] MEDS: FOLIC ACID 1 MG TABLET PO SCH (08:24)
--- NOTE | 2019-08-22 08:24 | NUR ---
RN NOTES ADMINISTERED ZOFRAN 4 MG/ML IV PUSH FOR NAUSEA.
[2019-08-22] MEDS: CHLORDIAZEPOXIDE HCL 25 MG CAPSULE PO SCH ×2 (08:37→16:50)
[2019-08-22] MEDS: POTASSIUM CL. PREMIX PERIPHER. 50 ML IV SCH ×4 (08:37→13:18)
[2019-08-22 09:26] LABS: EOSINOPHILS % (MANUAL) 4 % (0-4); LYMPHOCYTES % (MANUAL) 29 % (16-48); MONOCYTES % (MANUAL) 5 % (0-11.0); NEUTROPHILS % (MANUAL) 62 (42-76)
[2019-08-22] MEDS: THIAMINE HCL 100 MG TABLET PO SCH (10:28)
--- NOTE | 2019-08-22 12:00 | NUR ---
RN NOTES I INFUSING KCL 50 ML /HR ON RIGHT FA INTACT, ASSIST PATIENT TO THE BATHROOM.
[2019-08-22 16:00] VITALS: BP 132/79
[2019-08-22] MEDS: LORAZEPAM INJ 2 MG/ML VIAL IV PRN ×2 (17:27→23:52)
--- NOTE | 2019-08-22 17:27 | NUR ---
RN NOTES ADMINISTERED ATIVAN 1 MG /ML IV PUSH FOR NERVOUSNESS, AND ANXIETY PER PATIENT REQUEST V/S TAKEN BP 132/79, P-110. CONTINUED MONITORING.
--- NOTE | 2019-08-22 18:30 | NUR ---
RN NOTES PATIENT IN THE BED EATING, MEDICATION WERE ADMINISTERED FOR ANXIETY EFFECTIVE, INFUSING NS AT 100 ML/HR ON RIGHT FA INTACT. POLICE OFFICERS SITTING NEXT TO THE BED DO TO ARREST. CALL LIGHT WITHIN TO REACH. SAFETY PRECAUTION MAINTAINED ALL THE TIME. ENDORSED ONCOMING NURSE FOLLOW PLAN OF CARE.
--- NOTE | 2019-08-22 19:30 | NUR ---
RN OPEN NOTES RECEIVED PATIENT RESTING IN BED, EASILY AROUSABLE. POLICE OFFICERS AT BEDSIDE. A/OX3. NO SIGNS OF DISTRESS OR DISCOMFORT. BREATHING EVEN AND UNLABORED. IV ACCESS IN RFA WITH NS INFUSING, PATENT AND INTACT, NO SIGNS OF REDNESS OR INFILTRATION. BED IN LOW LOCKED POSITION WITH SIDE RAILS X2. CALL LIGHT WITHIN REACH. WILL CONTINUE TO MONITOR.
[2019-08-22 20:14] VITALS: BP 124/81
[2019-08-22] MEDS: ZOLPIDEM TARTRATE 5 MG TABLET PO PRN (21:30)
--- NOTE | 2019-08-22 23:52 | NUR ---
RN NOTES ADMINISTERED ATIVAN 1MG ORDERED, AT PATIENT REQUEST FOR ANXIETY AND ALCOHOL WITHDRAWAL SYMPTOMS. VSS. WILL CONTINUE TO MONITOR.
[2019-08-23 06:35] LABS: BASOPHILS # (AUTO) 0.1 /CMM (0.0-0.2); BASOPHILS % (AUTO) 1.2 % (0.0-2.0); EOSINOPHILS % (AUTO) 3.1 % (0.0-6.0); HEMATOCRIT 37 % (39-51); HEMOGLOBIN 12.6 g/dL (13.5-17.5); LYMPHOCYTES # (AUTO) 0.9 /CMM (0.8-4.8); LYMPHOCYTES % (AUTO) 19.9 % (20.0-44.0); MEAN CORPUSCULAR HGB CONC 34 g/dl (31.0-36.0); MEAN CORPUSCULAR VOLUME 102 fL (80-96); MONOCYTES # (AUTO) 0.6 /CMM (0.1-1.30); NEUTROPHILS % (AUTO) 63.8 % (43.0-81.0); PLATELET COUNT (AUTO) 105 /CMM (150-450); RED BLOOD CELL COUNT(AUTO) 3.65 MIL/uL (4.5-6.0); WHITE BLOOD COUNT (AUTO) 4.6 K/uL (4.3-11.0)
[2019-08-23] MEDS: LORAZEPAM INJ 2 MG/ML VIAL IV PRN (06:45)
--- NOTE | 2019-08-23 06:45 | NUR ---
RN NOTES ADMINISTERED ATIVAN 1MG ORDERED, AT PATIENT REQUEST FOR ANXIETY AND ALCOHOL WITHDRAWAL SYMPTOMS. BP 121/88 HR100. WILL CONTINUE TO MONITOR.
[2019-08-23 06:56] LABS: CREATININE 0.6 mg/dL (0.6-1.3); MAGNESIUM 1.5 mg/dL (1.8-2.4); PHOSPHORUS 2.4 mg/dL (2.5-4.9); POTASSIUM 3.7 mmol/L (3.5-5.1)
--- NOTE | 2019-08-23 06:57 | NUR ---
RN CLOSING NOTES PATIENT AWAKE IN BED. POLICE OFFICERS AT BEDSIDE. A/OX3. NO SIGNS OF DISTRESS OR DISCOMFORT. BREATHING EVEN AND UNLABORED. IV ACCESS IN RFA WITH NS INFUSING, PATENT AND INTACT, NO SIGNS OF REDNESS OR INFILTRATION. ALL NEEDS MET. NO SIGNIFICANT CHANGES THROUGH THE NIGHT. BED IN LOW LOCKED POSITION WITH SIDE RAILS X2. CALL LIGHT WITHIN REACH. WILL ENDORSE TO AM SHIFT FOR GRACIELA.
[2019-08-23] MEDS ORDERED: NEUTRA PHOS 1 POWD.PACKET PO ONE (07:30)
[2019-08-23 08:00] VITALS: BP 149/99
--- NOTE | 2019-08-23 08:00 | NUR ---
MS RN OPENING NOTES Received Patient awake and resting in bed. A/O x 3. VS stable with no acute distress. Breathing even and unlabored on room air with no respiratory distress. Denies pain. 20g PIV on RFA clean, dry, intact and flushing well with NS running at 100ml/hr. Safety precautions in place. Bed locked and set to lowest position with side rails x 2 up. Patient under police custody. All needs rendered at this time. Call light within reach. Will continue to monitor.
[2019-08-23] MEDS: PANTOPRAZOLE 40 MG VIAL IV SCH (08:36)
[2019-08-23] MEDS: MAGNESIUM OXIDE 400 MG TABLET PO SCH ×2 (08:36→21:00)
[2019-08-23] MEDS: FOLIC ACID 1 MG TABLET PO SCH (08:37)
[2019-08-23] MEDS: CHLORDIAZEPOXIDE HCL 25 MG CAPSULE PO SCH ×2 (08:37→17:28)
[2019-08-23] MEDS: THIAMINE HCL 100 MG TABLET PO SCH (08:37)
--- NOTE | 2019-08-23 14:22 | NUR ---
MS RN NOTES Per Transmitter Operator Archie, bed available for [facility] and requesting for transfer. Notified Case Management at this time. Patient in stable condition. Will continue to monitor.
[2019-08-23] MEDS: IV NS 0.9% 1,000 ML IV PRN (15:30)
[2019-08-23 16:00] VITALS: BP 130/93
--- NOTE | 2019-08-23 19:20 | NUR ---
CHANGE OF SHIFT REPORT Patient in bed, awake. Tolerating RA, denies pain. IVF infusing. Left wrist with handcuff to bedside rails, skin intact. Patient is under Police custody, officer at the bedside. Instructed patient to use call light for assistance, verbalized understanding.
[2019-08-23 20:00] VITALS: BP 155/92
[2019-08-23] MEDS: ZOLPIDEM TARTRATE 5 MG TABLET PO PRN (21:03)
[2019-08-24] MEDS: IV NS 0.9% 1,000 ML IV PRN (01:14)
--- NOTE | 2019-08-24 06:25 | NUR ---
END OF SHIRT REPORT Patient in bed, stable oxygen saturation on RA. IVF infusing, good appetite. Ambulates independently. Headache resolved with PRN Tylenol 650mg PO. Hourly rounds, slept well with PRN Ambien, seizure/fall precaution maintained. Awaits transfer to [facility] following. Patient is under [employer] custody, foreign policy officer at bedside. Patient left handcuff to bed side rail. Maintained safety.
[2019-08-24 06:31] LABS: EOSINOPHILS % (AUTO) 2.3 % (0.0-6.0); HEMATOCRIT 36 % (39-51); HEMOGLOBIN 12.2 g/dL (13.5-17.5); LYMPHOCYTES % (AUTO) 22.3 % (20.0-44.0); MEAN CORPUSCULAR HGB CONC 34 g/dl (31.0-36.0); MEAN CORPUSCULAR VOLUME 102 fL (80-96); MONOCYTES # (AUTO) 0.6 /CMM (0.1-1.30); MONOCYTES % (AUTO) 12.6 % (2.0-12.0); NEUTROPHILS # (AUTO) 2.9 /CMM (1.8-8.9); NEUTROPHILS % (AUTO) 61.8 % (43.0-81.0); PLATELET COUNT (AUTO) 120 /CMM (150-450); RED BLOOD CELL COUNT(AUTO) 3.56 MIL/uL (4.5-6.0); WHITE BLOOD COUNT (AUTO) 4.6 K/uL (4.3-11.0)
[2019-08-24 06:43] LABS: CALCIUM, SERUM 9.1 mg/dL (8.5-10.1); CREATININE 0.7 mg/dL (0.6-1.3); MAGNESIUM 1.4 mg/dL (1.8-2.4); PHOSPHORUS 2.4 mg/dL (2.5-4.9); POTASSIUM 3.5 mmol/L (3.5-5.1)
--- NOTE | 2019-08-24 07:36 | NUR ---
RN OPENING NOTES RECEIVED PATIENT IN BED RESTING. A/OX4. NOT IN ANY FORM OF DISTRESS, NO SOB. DENIED PAIN OR DISCOMFORT AT THIS TIME. IV ACCESS INTACT AND PATENT. KEPT PATIENT SAFE AND COMFORTABLE. ON POLICE CUSTODY. BED IN LOW/LOCKED POSITION, SIDERAILS UPX2, CALL LIGHT IN REACH. WILL CONTINUE TO MONITOR ACCORDINGLY.
[2019-08-24 08:00] VITALS: BP 144/94
[2019-08-24] MEDS ORDERED: NEUTRA PHOS 1 POWD.PACKET PO ONE (08:00)
[2019-08-24] MEDS: Magnesium 1GM/D5W 100ML PREMIX 100 ML IV SCH ×3 (08:31→12:47)
[2019-08-24] MEDS: THIAMINE HCL 100 MG TABLET PO SCH (08:32)
[2019-08-24] MEDS: PANTOPRAZOLE 40 MG VIAL IV SCH (08:33)
[2019-08-24] MEDS: CHLORDIAZEPOXIDE HCL 25 MG CAPSULE PO SCH (08:33)
[2019-08-24] MEDS: FOLIC ACID 1 MG TABLET PO SCH (08:33)
[2019-08-24] MEDS: LORAZEPAM INJ 2 MG/ML VIAL IV PRN (09:17)
[2019-08-24] MEDS ORDERED: MULT1TAB73 PO (10:31)
[2019-08-24] MEDS ORDERED: LORA-259 PO (10:31)
[2019-08-24] MEDS ORDERED: ONDA4TAB5 PO (10:31)
[2019-08-24] MEDS ORDERED: MAGN400T26 PO (10:31)
[2019-08-24] MEDS ORDERED: FOLI1TAB16 PO (10:31)
[2019-08-24] MEDS ORDERED: CHLO25CA22 PO (10:31)
[2019-08-24] MEDS ORDERED: THIA100T88 PO (10:31)
--- NOTE | 2019-08-24 14:45 | NUR ---
DISCHARGED PATIENT IN STABLE CONDITION UNDER POLICE CUSTODY. ACCOMPANIED BY PRIMARY NURSE TO THE LOBBBY. DISCHARGE INSTRUCTIONS GIVEN, VERBALIZED UNDERSTANDING. DC PAPERWORK AND PRESCRIPTIONS HANDED TO THE ALARM INSTALLATION TECHNICIAN SINCE PATIENT IS ON HAND CUFFS. IV ACCESS REMOVED, NO COMPLICATION. NAME BAND REMOVED. ALL BELONGINGS RETURNED TO THE PATIENT, FORMS SIGNED.
== END 2019-08-24 14:15 | DRG 775 ==
LOC: ER 20:29 → TELE 23:22 → MED 08-22 00:31
PROVIDERS: ADMIT Nurse Practitioner Acute Care; ATTEND Nurse Practitioner Acute Care
DX: F10.239 Alcohol dependence with withdrawal, unspecified (principal); F10.229 Alcohol dependence with intoxication, unspecified; G92 Toxic encephalopathy; K83.1 Obstruction of bile duct; E83.42 Hypomagnesemia; D63.8 Anemia in other chronic diseases classified elsewhere; E78.5 Hyperlipidemia, unspecified; E87.6 Hypokalemia; Y90.9 Presence of alcohol in blood, level not specified; R74.0 Nonspecific elevation of levels of transaminase and lactic acid dehydrogenase [LDH]
CPT/HCPCS: 36415; 80048-TC; 80061-TC; 80076-TC; 83690-TC; 83735-TC; 84100-TC; 85025-TC; 87081-TC; C9113; G0378; J2060; J2405; J3411; J3475; J3480; J7030; J7060

== ENCOUNTER 2019-12-24 20:11 | Emergency (ER) | payer MEDICAID, OTHER ==
[~2019-12-24] VITALS: Ht 170.2 cm; Wt 72.6 kg
[~2019-12-24 20:11] MED LIST: CHLO25CA22 PO; FOLI1TAB16 PO; LORA-259 PO; MAGN400T26 PO; MULT1TAB73 PO; ONDA4TAB5 PO; THIA100T88 PO
--- NOTE | 2019-12-24 20:20 | NUR ---
BIB EMS [facility] C/O ETOH. DENIES SI OR HI. PT DENIES ANY MEDICAL COMPLAINTS AT THIS TIME. PT AAOX4 NO ACUTE DISTRESS NOTED, RESP EVEN AND UNLABORED. PENDING ER MD HILL.
[2019-12-24 20:45] LABS: BASOPHILS % (AUTO) 0.6 % (0.0-2.0); EOSINOPHILS % (AUTO) 0.5 % (0.0-6.0); HEMATOCRIT 40 % (39-51); HEMOGLOBIN 13.3 g/dL (13.5-17.5); LYMPHOCYTES # (AUTO) 1.8 /CMM (0.8-4.8); LYMPHOCYTES % (AUTO) 22.7 % (20.0-44.0); MEAN CORPUSCULAR HGB CONC 33 g/dl (31.0-36.0); MEAN CORPUSCULAR VOLUME 95 fL (80-96); MONOCYTES # (AUTO) 0.9 /CMM (0.1-1.30); MONOCYTES % (AUTO) 10.9 % (2.0-12.0); NEUTROPHILS # (AUTO) 5.2 /CMM (1.8-8.9); NEUTROPHILS % (AUTO) 65.3 % (43.0-81.0); PLATELET COUNT (AUTO) 335 /CMM (150-450); RED BLOOD CELL COUNT(AUTO) 4.19 MIL/uL (4.5-6.0)
--- NOTE | 2019-12-24 20:45 | NUR ---
[employer] OFFIVERS AT BEDSIDE TALKING TO PT.
[2019-12-24 20:53] LABS: CALCIUM, SERUM 8.9 mg/dL (8.5-10.1); CREATININE 0.8 mg/dL (0.6-1.3); POTASSIUM 3.7 mmol/L (3.5-5.1)
[2019-12-24 21:02] LABS: ALBUMIN 3.8 g/dL (3.4-5.0); BILIRUBIN,DIRECT 0.1 mg/dL (0.0-0.2); BILIRUBIN,TOTAL 0.4 mg/dL (0.2-1.0); TOTAL PROTEIN, SERUM 7.8 g/dL (6.4-8.2)
[2019-12-24 21:03] LABS: SALICYLATE 0.8 mg/dL (2.8-20.0)
--- NOTE | 2019-12-24 22:23 | NUR ---
Patient is resting comfortably in bed. Easily aroused. VSS.
--- NOTE | 2019-12-25 00:14 | NUR ---
Patient is resting comfortably in bed. Easily aroused. VSS. Provided pt with blankets.
--- NOTE | 2019-12-25 03:58 | NUR ---
PT GIVEN SMILEY. VSS. AWAKE EATING.
--- NOTE | 2019-12-25 04:14 | NUR ---
PT RESTING COMFORTABLY.
--- NOTE | 2019-12-25 07:09 | NUR ---
Patient is ambulatory with a steady gait. Patient discharged to home in stable condition. Written and verbal after care instructions given. Patient verbalizes understanding of instruction.
[2019-12-25 07:39] VITALS: BP 117/59
== END 2019-12-25 07:40 | disposition home or self-care (01) ==
LOC: ER 20:17
DX: F10.129 Alcohol abuse with intoxication, unspecified (principal); F17.200 Nicotine dependence, unspecified, uncomplicated; Z60.2 Problems related to living alone; Z79.899 Other long term (current) drug therapy; Y90.8 Blood alcohol level of 240 mg/100 ml or more
CPT/HCPCS: 36415; 80048; 80076; 80307; 80329; 85025; 99283; G0480